=== PATIENT | female | born 1990 | race African-American/Black ===

== ENCOUNTER 2019-12-26 05:49 | Emergency (ER) | payer SELFPAY | END 2019-12-26 05:59 | LOC: ERS 05:49 | DX: S01.511A Laceration without foreign body of lip, initial encounter (principal); F32.9 Major depressive disorder, single episode, unspecified; F17.210 Nicotine dependence, cigarettes, uncomplicated; W22.8XXA Striking against or struck by other objects, initial encounter | CPT/HCPCS: 99283 ==